=== PATIENT | male | born 1985 ===

== ENCOUNTER 2022-08-04 19:47 | Outpatient (CLI) | payer MEDICAID, SELFPAY | END 2022-08-04 19:48 | disposition home or self-care (01) | PROVIDERS: Visit Provider Emergency Medicine Emergency Medical Services | DX: T14.90XA Injury, unspecified, initial encounter (principal); V48.0XXA Car driver injured in noncollision transport accident in nontraffic accident, initial encounter; Y92.410 Unspecified street and highway as the place of occurrence of the external cause ==